=== PATIENT | male | born 2000 | race Caucasian/White ===

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

== ENCOUNTER 2024-02-11 19:30 | Emergency (ER) | payer OTHER ==
[~2024-02-11] VITALS: Ht 167.6 cm; Wt 76.7 kg
[~2024-02-11 19:30] MED LIST changes: +CYCLOBENZAPRINE10 MG PO; +PREDNISONE20 MG PO
[2024-02-11] MEDS ORDERED: HYDROCODONE/ACETA 5/325 TAB PO ONE (23:30)
[2024-02-12] MEDS ORDERED: TRAMADOL HCL 50 MG HOME.PACK PO ONE (00:30)
[2024-02-12] MEDS ORDERED: TRAMADOL HCL50 MG PO (00:33)
[2024-02-12 01:00] VITALS: BP 170/93
== END 2024-02-12 01:00 | disposition home or self-care (01) ==
LOC: ED 19:30
DX: S93.401A Sprain of unspecified ligament of right ankle, initial encounter (principal); W22.8XXA Striking against or struck by other objects, initial encounter; Z88.0 Allergy status to penicillin
CPT/HCPCS: 73610; 99283; A9270